=== PATIENT | male | born 1950 | race Caucasian/White ===

== ENCOUNTER → 2020-05-25 | Outpatient (CLI) | payer OTHER ==
[~2020-05-25] VITALS: Ht 175.3 cm; Wt 108.9 kg
[~2020-05-25] MED LIST: DULOXETINE HCL60 MG PO; FLEXERIL PO; HYDROCHLOROTHIA25 M2 PO; LISINOPRIL PO; MELOXICAM15 MG PO; MORPHINE SULFA100 M1 PO; MORPHINE SULFA100 M3 PO; MORPHINE SULFAT60 M1 PO; ZESTRIL40 MG PO
--- NOTE | ~2020-05-25 | HPC ---
[facility] [address] [place] [address] PAIN MANAGEMENT CONSULTATION Name: GOOD LOPEZ [id number] Admission: 05/25/20 Attend Phys: Robe Weems DO Discharge: Date of : 54 Report #: [id number] THIS REPORT FOR: cc: JULIANNA COLLIER Physician not on staff Robe Weems DO ~ CC: Emanuel COLLIER Physician staff DATE OF SERVICE: 05/25/2020 CHIEF COMPLAINT: Low back pain. HISTORY OF PRESENT ILLNESS: As you know, the patient is a 70-year-old male with longstanding history of left low back pain. The patient has had surgeries in the past to address lumbar radicular issues, but continues to experience pain in the left low back. He lives some distance from the hospital here and has been treated by physicians in the [place], [place] area. It was noted that the patient was on extremely high opioid dosing at our visit today. He is taking 60 mg morphine every 8 hours for this single area of discomfort. The patient sought evaluation through Orthopedic Surgery to discuss options for surgery. The patient was subsequently referred to our clinic to trial facet injection on the left side to address L5-S1 facet arthropathy. The patient indicates the pain is continuous and steady, describes the pain as aching and stabbing. He places current pain score 5/10, daily average of 5/10, worst pain has been 9/10. The patient states that moving and working tends to exacerbate symptoms, rest tends to improve pain. He has been referred to our service to undergo interventional treatment to address left L5-S1 facet arthropathy. PAST MEDICAL HISTORY: Hypertension, history of prostate cancer. PAST SURGICAL HISTORY: 1. Prostatectomy. 2. Herniorrhaphy. 3. Back surgery. SOCIAL HISTORY: The patient is retired about 1 month ago. He is not receiving workmen's compensation nor is trying to obtain disability benefits. He smokes 1 pack tobacco per day and has done so for 20 years. Denies IV or illicit drug use. Denies any chronic alcohol use. He is unaccompanied at today's visit. REVIEW OF SYSTEMS: Positive for fatigue and weakness, wearing corrective [facility] [address] [place] [address] PAIN MANAGEMENT CONSULTATION Name: GOOD LOPEZ Room #: REG [facility].#: [id number] Admission: 05/25/20 Attend Phys: Robe Weems DO Discharge: Date of : 54 Report #: [id number] eyewear, hearing loss with tinnitus, frequent urination, nocturia, sexual difficulty, numbness and tingling sensations, nervousness, depression, heat and cold intolerance, bleeding and bruising tendencies. All other review of systems negative per 12-point review of systems other than those listed in history of present illness. Pain impact score of 28/70 indicating mild interference to moderate interference of daily activities secondary to pain. ALLERGIES: CONTRAST AGENT AND ROSUVASTATIN. CURRENT MEDICATIONS: MS Contin 160 mg 3 times a day, lisinopril 40 mg once a day, hydrochlorothiazide 25 mg per day, duloxetine 60 mg per day, meloxicam 15 mg per day, cyclobenzaprine 10 mg per day. IMAGING: MRI cervical spine obtained 04/28/2020 shows posterior decompression and instrumentation at L3-L4, multilevel degenerative changes, which is noted to be severe at L4-L5 and L5-S1. There is mild facet joint hypertrophy at L4-L5. There is a significant facet arthropathy on the left and mild on the right at L5-S1. PQRS: The patient has known arthritic changes of the lumbar spine. No rheumatoid arthritis. He is placing pain score at 5/10. He is not a fall risk nor has he fallen in the last 3 months. He is not on blood thinners, but is treated for hypertension. He is on chronic opioids at excessively high level. He has a moderate to high opioid addiction potential based on assessment tool. Pain impact is 28/70, [id number] interference of daily activities secondary to pain. PHYSICAL EXAMINATION: VITAL SIGNS: Blood pressure 135/90, pulse is 83, respiratory rate 14 and unlabored. The patient is 99% on room air. Height 5 feet 9 inches tall, weight 240 pounds, and BMI calculated 35.4. GENERAL: Well-developed, well-nourished, well-hydrated exogenously obese 70-year-old male appearing stated age, pain is rated today 5/10. HEENT: Normocephalic, atraumatic. Pupils equal, round and reactive. Extraocular muscles are intact. NEUROLOGIC: Speech is fluent. The patient deemed a fair historian. LUNGS: Decreased breath sounds bilaterally, prolonged expiratory phase. The patient does smell strongly of tobacco smoke. CARDIOVASCULAR: Regular. No appreciable gallop, no rub. ABDOMEN: Soft, mildly obese, normoactive bowel sounds. EXTREMITIES: Show no clubbing, no cyanosis, no edema. MUSCULOSKELETAL: The patient has well-healed surgical scar over the lumbar area consistent with the posterior fusion. There is palpatory tenderness over the paraspinal musculature of the lower lumbar spine specifically on the left over the facet joints at L5-S1. There is no sacroiliac joint palpatory tenderness. Seated straight leg raising negative. Supine straight leg raising is negative. [address] [address] PAIN MANAGEMENT CONSULTATION Name: GOOD LOPEZ Room #: [facility]#: [id number] Admission: 05/25/20 Attend Phys: Robe Weems DO Discharge: Date of : 54 Report #: [id number] Shawn's test is negative. Modified Gaenslen's positive for left low back pain directly over the L5-S1 facet joint. The patient is able to localize symptoms directly over this area. Gait appears fairly normal. Muscle bulk and tone equal and symmetrical in lower extremities. ASSESSMENT: 1. Lumbosacral spondylosis without radiculopathy. 2. Facet arthropathy of the lumbar spine. 3. Chronic intractable pain. PLAN: 1. Based on today's physical exam and history the patient has provided, the description the patient uses in regards to pain as well as the point specific location of symptoms, likely source of the patient's pain is the facet joint at L5-S1. The patient and I discussed the findings of his MRI, which indicated mild arthritic change in the area, though this is not consistent with the imaging itself. There is near complete obliteration of the left L5-S1 facet joint on imaging where the right facet joint shows only minor arthritic changes. This is consistent with the patient's symptoms of pain. He has no findings of the sacroiliac joint concerning of SI joint dysfunction. Given the localization of the pain directly over the L5-S1, we discussed the treatment options for facet arthropathy pain. We discussed physical therapy, stretching exercises and core strengthening as a treatment option. This will help stabilize the lumbar spine and improve pain. We discussed medication adjustments with suggestions of nonsteroidal anti-inflammatories for which the patient does actually find improvement in symptoms. We also discussed intra-articular facet injections, medial branch nerve blocks, radiofrequency lesioning and fusion of this facet joint. After reviewing the risks and benefits of all the proposed treatment options, the patient chose to move forward with intra-articular facet injection. 2. The patient was advised risks and benefits of an intra-articular facet injection. These risks include but are not necessarily limited to bleeding, bruising, infection, worsening pain, no relief of pain, also risk of temporary or permanent muscle weakness, temporary or permanent nerve damage, possible joint destruction and . The patient states understood and wished to proceed. 3. No medication changes made at today's visit. We do recommend the patient utilize an anti-inflammatory. He can receive [id number]-[id number] or prescription from his primary care to address this facet arthropathy pain. This may help to improve the symptoms he is experiencing and reduce his reliance on high dose opioid medications. We will defer to the primary team if they wish to initiate a solid 3 times a day nonsteroidal anti-inflammatory such as nabumetone or possibly diclofenac. [address] [address] PAIN MANAGEMENT CONSULTATION Name: GOOD LOPEZ Room #: REG [facility] Fish#: [id number] Admission: 05/25/20 Attend Phys: Robe Weems DO Discharge: Date of : 54 Report #: [id number] 4. We have plans to see the patient back in followup visit on an as needed basis for possible next in the series of intra-articular facet injections. If the facet injections do provide improvement in symptoms, but he continues to experience recurrence of symptoms, treatment options could involve radiofrequency lesioning of the medial branch nerves or possibly even surgical options. We wish to thank Dr. Odom for the referral of the patient to our clinic. We will keep you apprised of his response to treatment as we address facet arthropathy pain involving the left L5-S1 facet joint. Again, we wish to thank you for the opportunity to see the patient in consultation. PROCEDURE NOTE DESCRIPTION OF PROCEDURE: Left L5-S1 intraarticular facet injection under fluoroscopic guidance. This is the first procedure of the first series that the patient is undergoing. After obtaining written consent, the patient was taken back to the fluoroscopy suite and placed in a prone position with a pillow under the abdomen to decrease the lumbar lordosis and to facilitate needle entry into the facet joints. The skin overlying the lumbosacral area was prepped and draped in an aseptic fashion. AP and lateral fluoroscopic imaging was obtained. Optimal position of the fluoroscope occurred when the joint line was first visualized. The facet joints were identified radiographically directed adjacent to the superior articular process of the caudad vertebrae. The skin overlying the target site(s) of injection was anesthetized using 3 mL of 1% lidocaine. A 22-gauge 3.5 inch spinal needle with bent tip was advanced towards the L5-S1 facet joint on the left side under fluoroscopic guidance. The firm posterior capsule had its characteristic feel and the needle was advanced a few additional millimeters beyond the joint capsule into the joint space, but not into the articular cartilage. After the joint space was entered and aspiration was negative for heme or CSF, 0.2 mL of Omnipaque was injected demonstrating a characteristic facet arthrogram. After negative aspiration for heme or CSF, 1.5 mL of a solution containing 1 mL 40 mg/mL 40 mg total triamcinolone and 0.5 mL of bupivacaine 0.5% along with 3 mL of lidocaine 1% was slowly injected at each of lumbar facet(s). The needle was then removed. There were no apparent complications. The patient tolerated the procedure well and was carefully escorted to the recovery room in stable condition. The [facility] [address] [place] [address] PAIN MANAGEMENT CONSULTATION Name: GOOD LOPEZ Room #: REG SHONNA Whitten#: [id number] Admission: 05/25/20 Attend Phys: Robe Weems DO Discharge: Date of : 54 Report #: [id number] was 5/10 before the procedure and 0/10 ten minutes after the procedure. After meeting discharge criteria, the patient was discharged home. By: [id number] Robe Weems DO /nt
[2020-05-25 09:30] VITALS: BP 135/90
--- NOTE | 2020-05-25 10:29 | NUR ---
Pain Clinic Assessment: 1. History of Osteoarthritis: SPINE History of Rheumatoid Arthritis: Not Applicable 2. Height: 5 ft. 9 in. 175.3 cm. Weight: 240.0 lb. oz. 108.864 kg. Patient's BMI: 35.4 3. Vital Signs: BP: 135/90 Pulse: 83 Resp: 14 Temp: 02 Sat: 99 ECG Mon: 4. Pain Intensity: 5 5. Fall Risk: Dizziness: N Needs help standing or walking: N Fallen in the last 3 months: N Fall risk comments: 6. Patient on Blood Thinner: None 7. History of Hypertension: Y 8. Opioid Therapy greater than 6 weeks: Y Opiate Contract Signed: 9. Risk Assessment Tool Provided: 4-MOD 10. Functional Assessment Tool: 11. Recreational Drug Use: Past greater than 3 mos Drug Type: MARAJUANIA Tobacco Use: Current Every Day Smoker Tobacco Type: Cigarettes Amount or Packs/day: 1 How Many Years: 20 Alcohol Use: No Frequency: Quant:
== END | disposition home or self-care (01) ==
LOC: PAIN 06:54
PROVIDERS: ATTEND Anesthesiology Pain Medicine
DX: M47.817 Spondylosis without myelopathy or radiculopathy, lumbosacral region (principal); M47.816 Spondylosis without myelopathy or radiculopathy, lumbar region; G89.29 Other chronic pain; I10 Essential (primary) hypertension; Z98.890 Other specified postprocedural states; Z79.899 Other long term (current) drug therapy; Z91.041 Radiographic dye allergy status; Z88.8 Allergy status to other drugs, medicaments and biological substances

== ENCOUNTER → 2021-06-28 | Outpatient (CLI) | payer OTHER ==
[~2021-06-28] VITALS: Ht 175.3 cm; Wt 95.8 kg
[2021-06-28 13:21] VITALS: BP 106/73
--- NOTE | 2021-06-28 13:59 | NUR ---
Pain Clinic Assessment: 1. History of Osteoarthritis: SPINE History of Rheumatoid Arthritis: Not Applicable 2. Height: 5 ft. 9 in. 175.3 cm. Weight: 211.2 lb. oz. 95.800 kg. Patient's BMI: 31.2 3. Vital Signs: BP: 106/73 Pulse: 87 Resp: 16 Temp: 02 Sat: 98 ECG Mon: 4. Pain Intensity: 8 5. Fall Risk: Dizziness: N Needs help standing or walking: N Fallen in the last 3 months: Y Fall risk comments: 6. Patient on Blood Thinner: None 7. History of Hypertension: Y 8. Opioid Therapy greater than 6 weeks: Y Opiate Contract Signed: 9. Risk Assessment Tool Provided: 4-MOD 10. Functional Assessment Tool: 11. Recreational Drug Use: Past greater than 3 mos Drug Type: Tobacco Use: Current Every Day Smoker Tobacco Type: Cigarettes Amount or Packs/day: 1 PACK How Many Years: Alcohol Use: No Frequency: Quant:
--- NOTE | 2021-07-05 09:20 | HPC ---
[facility] [place] [address] PAIN MANAGEMENT CONSULTATION Name: GOOD LOPEZ Room #: REG [facility] JoanDinora#: [id number] Admission: 06/28/21 Attend Phys: Robe Weems DO Discharge: Date of : 54 Report #: [id number] THIS REPORT FOR: cc: JULIANNA IVAN Physician not on staff Robe Weems DO ~ cc: Emanuel Dill MD DATE OF SERVICE: 06/28/2021 REFERRING PHYSICIAN: Emanuel Dill MD CHIEF COMPLAINT: Left low back pain. HISTORY OF PRESENT ILLNESS: As you know, the patient is a 71-year-old male with longstanding history of chronic left low back pain. He has had multiple surgeries to address this issue, but continues to experience pain. He was seen in consultation per the request of his orthopedic spine surgeon, Dr. Emanuel Dill to address facet arthropathy symptoms. He underwent an intra-articular diagnostic facet injection at the L4-L5 and L5-S1 level on the left side with excellent pain improvement. He reports 75% improvement lasting for nearly 3 months. He returns today in followup visit with recurrence of left low back symptoms, rating his pain at 8/10. He states pain is constant and aching, stabbing in sensation. He returns to address this issue and to discuss the possibility of bilateral shoulder injections in the near future. ALLERGIES: IV CONTRAST AGENT, LOVASTATIN. CURRENT MEDICATIONS: MS Contin 100 mg twice a day, lisinopril 40 mg per day, hydrochlorothiazide 25 mg a day, duloxetine 60 mg once a day, meloxicam 15 mg a day, cyclobenzaprine 10 mg t.i.d. SOCIAL HISTORY: The patient is retired, not receiving workmen's compensation, accompanied by his family member present in room today. IMAGING: No new imaging available. :PQRS The patient has known arthritic changes of the lumbar spine. He has known arthritic changes of lumbar spine, bilateral shoulders, bilateral hands. No rheumatoid arthritis, placing current pain score at 8/10. He is not a fall risk, but has had falls in the past 3 months. He does not use any type of ambulatory device or balance device. He is not on blood thinners, but is treated for hypertension. He is on chronic opioid medications and has a yuilkzax-et-etosdn opioid addiction potential. Based on assessment tool, pain impact is 28/70, moderate interference of daily activities secondary to pain. PHYSICAL EXAMINATION: [facility] [address] [place] [address] PAIN MANAGEMENT CONSULTATION Name: GOOD LOPEZ Room #: REG [facility] FrancoDinora#: [id number] Admission: 06/28/21 Attend Phys: Robe Weems DO Discharge: Date of : 54 Report #: [id number] VITAL SIGNS: Blood pressure 106/73, pulse 87, respiratory rate 16 and unlabored. The patient is 98% on room air. Height 5 feet 9 inches tall, weight 211.2 pounds, BMI calculated 31.2. GENERAL: Well-developed, well-nourished, well-hydrated 70-year-old male, smells strongly of tobacco smoke, placing current pain score 8/10. HEENT: Normocephalic, atraumatic. Pupils are equal, round and responsive. He is wearing a mask in compliance with COVID-19 regulations. EXTREMITIES: Show no clubbing, no cyanosis, no edema. MUSCULOSKELETAL: Seated straight leg raising negative. Supine straight leg raising is negative. Fabere's test is negative. Modified Gaenslen's positive for left low back pain directly over the L5-S1 facet joint and to a lesser degree at the L4-L5 level. Lumbar provocation testing including extension, rotation, lateral flexion to the left all intensify axial back symptoms. Bilateral shoulder pain is noted with active and passive range of motion. There is no augustin crepitus with movement, though there was restriction to active range of motion due to pain. ASSESSMENT: 1. Lumbosacral spondylosis with radiculopathy. 2. Facet arthropathy, lumbar spine. 3. Bilateral shoulder pain. 4. Bilateral shoulder osteoarthritis. 5. Chronic intractable pain. PLAN: 1. The patient returns today in followup visit to undergo repeat diagnostic L4-L5, L5-S1 left intra-articular facet injections. The patient did very well with the diagnostic blocks, noticing almost 3 months of improvement in symptoms with the previous injection, returning today requesting the next in the series. He has been advised the risks and benefits of these diagnostic blocks, states understood and wished to proceed. 2. The patient reports today that he is experiencing bilateral shoulder pain for which he is seeing significant limitation in activity. He wants to discuss the possibility of treatment options. The review of the physical exam would indicate that he is suffering from osteoarthritic changes bilaterally and likely rotator cuff injuries. Intra-articular shoulder injections would be recommended as a treatment course. He is on excessively high-dose opioid, so treatment from a medication standpoint is limited. We would recommend intra-articular shoulder injections as a treatment course. If this is not successful, then have the patient follow up with his own orthopedic surgeon to discuss surgical options. The patient is agreeable with the plan. He will make an appointment back in our clinic in about 2 weeks for bilateral intra-articular shoulder injections. 3. I plan to see the patient back in followup visit in 2 weeks, if he wants to move forward with the intra-articular shoulder injections. Otherwise, we will see him back on an as needed basis to address axial back pain due to facet arthropathy. [address] [address] PAIN MANAGEMENT CONSULTATION Name: GOOD LOPEZ Room #: REG [facility] Whitten#: [id number] Admission: 06/28/21 Attend Phys: Robe Weems DO Discharge: Date of : 54 Report #: [id number] PROCEDURE: Left L4-L5, L5-S1 intra-articular facet diagnostic blocks. DESCRIPTION OF PROCEDURE: After obtaining written consent, the patient was taken back to fluoroscopy suite, placed in prone position with pillow under abdomen to decrease lumbar lordosis and to facilitate needle entry into the facet joints. Skin overlying the lumbosacral area was then prepped and draped in aseptic fashion. AP and lateral fluoroscopic imaging was obtained. Optimal position of the fluoroscope was completed when the joint line was first visualized. The L4-L5, L5-S1 facet joints were identified radiographically directly adjacent to the superior articular process of the caudal vertebrae on the left side. Skin overlying the target sites of injection was then anesthetized with 3 mL of 1% preservative-free lidocaine. A 22-gauge 3-1/2-inch spinal needle with bent tip was advanced towards the L4-L5 facet joint on the left side under fluoroscopic guidance. The firm posterior capsule had its characteristic feel and the needle was advanced a few millimeters beyond the joint capsule into the joint space, but not into the articular cartilage. After the joint was entered and aspiration noted to be negative for heme, 1.5 mL of a solution containing 1 mL of 40 mg per mL, 40 mg total triamcinolone and 3 mL of bupivacaine 0.5% was injected slowly. Needle retracted group home flushed with 1 mL of 1% lidocaine and then removed. Our attention was then directed to the L5-S1 facet joint. A 22-gauge 3-1/2-inch spinal needle with bent tip was then advanced towards the L5-S1 facet joint on the left side under fluoroscopic guidance. The firm posterior capsule had its characteristic feel. The needle was advanced a few millimeters into the joint space, but not into the articular cartilage. The joint space was entered without complication. After negative aspiration for heme or cerebrospinal fluid, 1.5 mL of a solution containing 1 mL, 40 mg per mL, 40 mg of total triamcinolone and 3 mL of bupivacaine 0.5% was injected slowly. The needle retracted group home flushed with 1 mL of 1% lidocaine and removed. Sterile bandage placed over injection site. The patient tolerated the procedure well, carefully escorted to recovery room in stable condition. No apparent complications. After meeting discharge criteria, the patient discharged home. <ELECTRONICALLY SIGNED> By: Robe Weems DO 07/05/21919 2 2147 Robe Weems DO /nt
== END | disposition home or self-care (01) ==
LOC: PAIN 08:07
PROVIDERS: ATTEND Anesthesiology Pain Medicine
DX: M47.817 Spondylosis without myelopathy or radiculopathy, lumbosacral region (principal); M47.816 Spondylosis without myelopathy or radiculopathy, lumbar region; M19.011 Primary osteoarthritis, right shoulder; M19.012 Primary osteoarthritis, left shoulder; M25.511 Pain in right shoulder; M25.512 Pain in left shoulder; G89.29 Other chronic pain; F17.210 Nicotine dependence, cigarettes, uncomplicated; Z98.890 Other specified postprocedural states; Z79.899 Other long term (current) drug therapy; Z91.041 Radiographic dye allergy status; Z88.8 Allergy status to other drugs, medicaments and biological substances

== ENCOUNTER → 2021-07-13 | Outpatient (CLI) | payer OTHER ==
[~2021-07-13] VITALS: Ht 175.3 cm; Wt 95.6 kg
[2021-07-13 10:24] VITALS: BP 129/88
--- NOTE | 2021-07-13 10:48 | NUR ---
Pain Clinic Assessment: 1. History of Osteoarthritis: SPINE History of Rheumatoid Arthritis: Not Applicable 2. Height: 5 ft. 9 in. 175.3 cm. Weight: 210.8 lb. oz. 95.618 kg. Patient's BMI: 31.1 3. Vital Signs: BP: 129/88 Pulse: 70 Resp: 14 Temp: 02 Sat: 100 ECG Mon: 4. Pain Intensity: 8 5. Fall Risk: Dizziness: N Needs help standing or walking: N Fallen in the last 3 months: N Fall risk comments: 6. Patient on Blood Thinner: None 7. History of Hypertension: Y 8. Opioid Therapy greater than 6 weeks: Y Opiate Contract Signed: 9. Risk Assessment Tool Provided: 4-MOD 10. Functional Assessment Tool: 11. Recreational Drug Use: Past greater than 3 mos Drug Type: Tobacco Use: Current Every Day Smoker Tobacco Type: Cigarettes Amount or Packs/day: 1 How Many Years: 20 Alcohol Use: No Frequency: Quant:
--- NOTE | 2021-07-19 15:04 | HPC ---
[facility] [address] [place] [address] PAIN MANAGEMENT CONSULTATION Name: LOPEZGOOD [facility] [id number] Admission: 07/13/21 Attend Phys: Robe Weems DO Discharge: Date of : 54 Report #: [id number] THIS REPORT FOR: cc: JULIANNA IVAN Physician not on staff Robe Weems DO ~ cc: Xu Rose DATE OF SERVICE: 07/13/2021 REFERRING PHYSICIAN: Dr. Xu Rose. CHIEF COMPLAINT: Bilateral shoulder pain. HISTORY OF PRESENT ILLNESS: As you know, the patient is a 71-year-old male with longstanding history of bilateral shoulder pain and chronic low back pain. The patient has undergone intraarticular diagnostic facet injections x 2 per the request of referring physicians from [place], [place] with good benefit. He continues to experience bilateral shoulder pain for which he returns today to undergo bilateral intraarticular shoulder injections under fluoroscopic guidance. He is placing his current pain score at 8/10. The patient has had intraarticular shoulder injections provided in the past, which gave excellent benefit. He has been referred back to our service for bilateral shoulder pain. He is denying injury or trauma to the shoulders. ALLERGIES: CONTRAST AGENT and ROSUVASTATIN. CURRENT MEDICATIONS: See chart. SOCIAL HISTORY: The patient retired about 1 month ago, but continues to work periodically. He is smoking tobacco about 1 pack per day, has done so for 20 years. Denies IV or illicit drug use. Denies any chronic alcohol use. He is unaccompanied today. IMAGING: No new imaging available. PQRS: The patient has known arthritic changes of bilateral shoulders and lumbar spine. No rheumatoid arthritis. He is placing current pain intensity at 8/10. He is not a fall risk, has not had a fall in last 3 months, not on blood thinners, but is treated for hypertension. He is on chronic high dose opioid medication and has a moderate risk of opioid addiction. Pain impact is 28/70, moderate interference of daily activities secondary to pain. PHYSICAL EXAMINATION: VITAL SIGNS: Blood pressure 129/88, pulse 70, respiratory rate 14 and unlabored. The patient 100% on room air. Height 5 feet 9 inches tall, weight 210.8 pounds, BMI calculated 31.1. [address] [address] PAIN MANAGEMENT CONSULTATION Name: GOOD LOPEZ Room #: REG [facility].#: [id number] Admission: 07/13/21 Attend Phys: Robe Weems DO Discharge: Date of : 54 Report #: [id number] GENERAL: Well-developed, well-nourished, well-hydrated 71-year-old male, smells strongly of tobacco smoke, placing current pain score around 8/10. HEENT: Normocephalic, atraumatic. He is wearing a mask in compliance with COVID-19 regulations. EXTREMITIES: Show no clubbing, no cyanosis. No appreciable edema. MUSCULOSKELETAL: Active and passive range of motion of bilateral shoulders met with slight increase in pain. There is no augustin crepitus noted with movement. There are no concerning findings from a physiologic standpoint for rotator cuff injuries. He is able to perform all the provocative testing without difficulty, except for pain generation. ASSESSMENT: 1. Bilateral shoulder pain. 2. Bilateral shoulder osteoarthritis. PLAN: 1. The patient returns today in followup visit requesting bilateral intraarticular shoulder injections under fluoroscopic guidance. The patient has had excellent benefit with undergoing these in the past with another pain clinic. He returns to undergo these injections today. He has been advised risks and benefits of the procedure. These risks include but are not necessarily limited to bleeding, bruising, infection, worsening of pain, no relief of pain, also risk of temporary or permanent muscle weakness, temporary or permanent nerve damage, possible joint destruction and . The patient states understood and wished to proceed. 2. No medication changes made at today's visit. The patient will continue current medical therapy as prior prescribed. 3. We plan to see the patient back in followup visit on an as needed basis for the next in the series of bilateral intra-articular shoulder injections. We are hopeful the patient will see good and prolonged benefit with today's procedure. PROCEDURE NOTE: DESCRIPTION OF PROCEDURE: Bilateral intraarticular shoulder injections under fluoroscopic guidance. After obtaining written consent, the patient was taken back to fluoroscopy suite, placed in a supine position. The image intensifier (C-arm) was then brought into position over the left shoulder and AP imaging was obtained. The area overlying the injection was marked and then sterilely prepped with chlorhexidine. A 27-gauge 1-1/4-inch needle was then used to anesthetize skin and subcutaneous tissue with 2 mL of 1% preservative-free lidocaine. A 25-gauge 2-inch needle was then advanced into the shoulder joint under direct visualization. Needle was advanced until reaching the proximal head of the humerus. Once reaching the proximal head, the needle was then retracted [address] [address] PAIN MANAGEMENT CONSULTATION Name: GOOD LOPEZ Room #: REG [facility] Ben[facility]tez#: [id number] Admission: 07/13/21 Attend Phys: Robe LiliaHussein Weems DO Discharge: Date of : 54 Report #: [id number] and aspiration noted to be negative for heme. After negative aspiration for heme, 3 mL of a solution containing 1 mL 40 mg/mL, 40 mg total triamcinolone along with 2 mL of bupivacaine 0.5% injected slowly. Needle retracted senior living, flushed with 1 mL of 1% lidocaine and removed. Sterile bandage placed over injection site. There were no new motor deficits present in the left upper extremity. Our attention was then directed to the right side. The image intensifier (C-arm) was then brought into position over the right shoulder and AP imaging was obtained. The area was marked and then prepped and draped sterilely with chlorhexidine. A 27-gauge 1-1/4-inch needle was then used to anesthetize skin and subcutaneous tissue with 2.5 mL of lidocaine 1% preservative-free. A 25-gauge 2-inch needle was then advanced under fluoroscopic guidance towards the proximal head of the humerus. Needle was advanced until reaching the proximal head of the humerus then retracted 1 mm. After negative aspiration for heme, 3 mL of a solution containing 1 mL 40 mg/mL, 40 mg total triamcinolone along with 2 mL of bupivacaine 0.5% injected slowly. Needle retracted senior living, flushed with 1 mL of 1% lidocaine and removed. Sterile bandage placed over injection site. There were no new motor deficits present in the right upper extremity following procedure. The patient tolerated the procedure well, carefully escorted to recovery room in stable condition. No apparent complications. After meeting discharge criteria, the patient discharged home. <ELECTRONICALLY SIGNED> By: Robe Weems DO 07/19/21 1504 [id number] Robe Weems DO /nt
== END | disposition home or self-care (01) ==
LOC: PAIN 07:08
PROVIDERS: ATTEND Anesthesiology Pain Medicine
DX: M25.511 Pain in right shoulder (principal); M25.512 Pain in left shoulder; M19.011 Primary osteoarthritis, right shoulder; M19.012 Primary osteoarthritis, left shoulder; G89.29 Other chronic pain; I10 Essential (primary) hypertension; M19.90 Unspecified osteoarthritis, unspecified site; Z98.890 Other specified postprocedural states; Z79.899 Other long term (current) drug therapy; Z91.041 Radiographic dye allergy status; Z88.8 Allergy status to other drugs, medicaments and biological substances

== ENCOUNTER → 2021-09-13 | Outpatient (CLI) | payer OTHER ==
[~2021-09-13] VITALS: Ht 175.3 cm; Wt 96.7 kg
[2021-09-13 11:16] VITALS: BP 142/92
--- NOTE | 2021-09-13 11:27 | NUR ---
Pain Clinic Assessment: 1. History of Osteoarthritis: SPINE History of Rheumatoid Arthritis: Not Applicable 2. Height: 5 ft. 9 in. 175.3 cm. Weight: 213.2 lb. oz. 96.707 kg. Patient's BMI: 31.5 3. Vital Signs: BP: 142/92 Pulse: 63 Resp: 16 Temp: 02 Sat: 97 ECG Mon: 4. Pain Intensity: 9 5. Fall Risk: Dizziness: N Needs help standing or walking: N Fallen in the last 3 months: Y Fall risk comments: 6. Patient on Blood Thinner: None 7. History of Hypertension: Y 8. Opioid Therapy greater than 6 weeks: Y Opiate Contract Signed: 9. Risk Assessment Tool Provided: 4-MOD 10. Functional Assessment Tool: 11. Recreational Drug Use: Past greater than 3 mos Drug Type: Tobacco Use: Current Every Day Smoker Tobacco Type: Cigarettes Amount or Packs/day: 1 PACK How Many Years: Alcohol Use: No Frequency: Quant:
--- NOTE | 2021-09-14 08:51 | HPC ---
[facility] [place] [address] PAIN MANAGEMENT CONSULTATION Name: RACHANA LOPEZALD Room #: REG [facility].#: [id number] Admission: 09/13/21 Attend Phys: Robe Weems DO Discharge: Date of : 54 Report #: [id number] THIS REPORT FOR: cc: JULIANNA IVAN Physician not on staff Robe Weems DO ~ cc: Dr. Xu Forrester DATE OF SERVICE: 09/13/2021 REFERRING PHYSICIAN: Dr. Xu Forrester. CHIEF COMPLAINT: Left knee pain. HISTORY OF PRESENT ILLNESS: As you know, the patient is a 71-year-old male referred to our service for bilateral shoulder pain, chronic low back pain. He has undergone injections to address his lumbar facets with good benefit and underwent bilateral intra-articular shoulder injections with excellent benefit. He is now experiencing left knee pain consistent with osteoarthritis. The patient states he was doing very well until recently where his knee pain began to intensify. He states standing and walking exacerbate symptoms, sitting and lying down improves symptoms. He has been referred back to our clinic to discuss the possibility of undergoing intra-articular injection of the left knee. ALLERGIES: CONTRAST AGENT, ROSUVASTATIN. CURRENT MEDICATIONS: See chart. SOCIAL HISTORY: The patient denies alcohol, IV or illicit drug use. He smokes 1 pack of tobacco per day. He is retired, retired a couple of months ago. He is unaccompanied today. IMAGING: No new imaging available. PQRS: The patient has known arthritic changes of bilateral shoulders, lumbar spine, bilateral hips and knees. No rheumatoid arthritis. He is placing current pain intensity at 9/10. He is not a fall risk, but has had a fall in last 3 months. This was tripping over an object, that has been rectified. He is not on blood thinners, but is treated for hypertension. He is on chronic opioids, has a moderate opioid addiction potential based on assessment tool and continued smoking. Pain impact is 28/70, moderate interference of daily activities secondary to pain. PHYSICAL EXAMINATION: VITAL SIGNS: Blood pressure 142/92, pulse 63, respiratory rate 16 and unlabored. The patient is 97% on room air. Height 5 feet 9 inches tall, weight [facility] [address] [place] [address] PAIN MANAGEMENT CONSULTATION Name: GOOD LOPEZ Room #: REG [facility].#: [id number] Admission: 09/13/21 Attend Phys: Robe Weems DO Discharge: Date of : 54 Report #: [id number] 213.2 pounds, BMI calculated 31.5. GENERAL: Well-developed, well-nourished, well-hydrated 71-year-old male appearing his stated age. He is placing current pain score at 9/10. HEENT: Normocephalic, atraumatic. Pupils are round. EXTREMITIES: Show no clubbing, no cyanosis and no edema. MUSCULOSKELETAL: Active and passive range of motion of the left knee is met with slight increase in pain. There is palpatory tenderness over the tibial plateau. There is no ecchymosis, no significant swelling of the area. No Matute cyst. Lateral collateral and medial collateral ligaments are intact. Drawer tests are negative. ASSESSMENT: 1. Left knee pain. 2. Left knee osteoarthritis. PLAN: 1. Based on today's physical exam and history the patient has provided, the description the patient uses in regards to pain as well as the discrete location of symptoms he is experiencing like source of his current pain is his left knee. The patient has trialed conservative treatment without benefit. He has been referred back to our clinic to trial an intra-articular knee injection under fluoroscopic guidance. The patient and I discussed the risks and the benefits of an intraarticular knee injection. These risks include but are not necessarily limited to bleeding, bruising, infection, worsening pain, no relief of pain, also risk of temporary or permanent muscle weakness, temporary or permanent nerve damage, possible joint destruction and . The patient states he understood and wished to proceed. 2. No medication changes made at today's visit. The patient will continue current medical therapy as prior prescribed. 3. We will plan to see the patient back in followup visit on an as needed basis. I am hopeful the patient will see improvement in symptoms in his left knee as he has seen in his bilateral shoulders and low back. PROCEDURE NOTE DESCRIPTION OF PROCEDURE: Left intraarticular knee injection under fluoroscopic guidance. After obtaining written consent, the patient was taken back to fluoroscopy suite, placed in supine position. The image intensifier was then brought into position over the left knee and AP imaging was obtained. The area of the medial knee was prepped and draped in aseptic fashion using chlorhexidine. A 27-gauge 1-1/4-inch needle was then used to anesthetize skin and subcutaneous tissue with 2 mL of 1% preservative-free lidocaine. A 25-gauge 2-inch needle was advanced under fluoroscopic guidance into the knee [address] [address] PAIN MANAGEMENT CONSULTATION Name: GOOD LOPEZ Room #: REG CL[facility] Whitten#: [id number] Admission: 09/13/21 Attend Phys: Robe Weems DO Discharge: Date of : 54 Report #: [id number] joint itself. This was done under fluoroscopic guidance. After entering the knee joint, aspiration was noted to be negative for heme. After negative aspiration for heme, 3 mL of solution containing 1 mL 40 mg per mL, 40 mg total triamcinolone along with 2 mL of bupivacaine 0.5% injected slowly. Needle retracted assisted flushed with 1 mL of 1% lidocaine, then removed. Sterile bandage placed over injection site. No new motor deficits present in the lower extremities following procedure. The patient tolerated the procedure well, carefully escorted to recovery room in stable condition. No apparent complications. After meeting our discharge criteria, the patient discharged home. <ELECTRONICALLY SIGNED> By: Robe Weems DO 09/14/21 0851 [id number] Robe Weems DO /nt
== END | disposition home or self-care (01) ==
LOC: PAIN 10:24
PROVIDERS: ATTEND Anesthesiology Pain Medicine
DX: M25.562 Pain in left knee (principal); M17.12 Unilateral primary osteoarthritis, left knee; I10 Essential (primary) hypertension; M19.90 Unspecified osteoarthritis, unspecified site; Z98.890 Other specified postprocedural states; Z79.899 Other long term (current) drug therapy; Z88.8 Allergy status to other drugs, medicaments and biological substances; Z91.041 Radiographic dye allergy status